=== PATIENT | male | born 1935 | race Caucasian/White ===

== ENCOUNTER 2016-10-21 05:06 | Inpatient (IN) | payer OTHER, MEDICARE ==
[~2016-10-21] VITALS: Ht 182.9 cm; Wt 103.4 kg
[~2016-10-21 05:06] MED LIST: COZ50 PO; PLE5 PO; ZOC20 PO; ZYL300 PO
[2016-10-21] MEDS ORDERED: ALLOPURINOL100 MG PO (07:19)
[2016-10-21] MEDS ORDERED: XARELTO10 M1 PO (07:19)
[2016-10-21] MEDS ORDERED: COZAAR100 MG PO (07:20)
[2016-10-21 07:24] LABS: BASOPHIL % 0.4 % (0-2); PLATELET COUNT 215 x10^3mcL (130-400)
[2016-10-21 07:25] LABS: RED CELL DISTRIBUTION WIDTH 14.7 % (11.5-14.5)
[2016-10-21 07:30] LABS: CALCIUM 8.8 mg/dL (8.5-10.1); CARBON DIOXIDE 27.2 mmol/L (21-32); CHLORIDE SERUM 106 mmol/L (98-107); CREATININE SERUM 1.1 mg/dL (0.7-1.3); GLUCOSE SERUM 123 mg/dL (74-106); SODIUM SERUM 140 mmol/L (136-145)
[2016-10-21 07:35] LABS: ALBUMIN 3.6 g/dL (3.4-5.0); ALKALINE PHOSPHATASE 78 U/L (46-116); ALT/SGPT 26 U/L (16-63); AST/SGOT 21 U/L (15-37); TOTAL PROTEIN, SERUM 7.5 g/dL (6.4-8.2)
[2016-10-21 09:41] LABS: T3 TOTAL 1.09 ng/mL
[2016-10-21 10:13] LABS: CHOLESTEROL/HDL RATIO 3.7; PHOSPHOROUS 3.4 mg/dL (2.5-4.9)
[2016-10-21 10:32] VITALS: BP 138/88
[2016-10-21 10:49] LABS: FREE T4 1.1 ng/dL (0.76-1.46)
[2016-10-21 11:27] VITALS: BP 135/80
[2016-10-21 11:47] LABS: FREE THYROXINE INDEX 0.6 ug/dL (1.4-4.5)
[2016-10-21 14:10] VITALS: BP 135/80
[2016-10-21 14:40] VITALS: BP 109/73
[2016-10-21 17:42] VITALS: BP 121/67
[2016-10-21 21:03] VITALS: BP 118/80
[2016-10-22 05:55] VITALS: BP 132/83
[2016-10-22 06:32] LABS: CALCIUM 8.4 mg/dL (8.5-10.1); CARBON DIOXIDE 27.3 mmol/L (21-32); CHLORIDE SERUM 107 mmol/L (98-107); CREATININE SERUM 1.1 mg/dL (0.7-1.3); GLUCOSE SERUM 103 mg/dL (74-106); MAGNESIUM 1.9 mg/dL (1.8-2.4); PHOSPHOROUS 3.1 mg/dL (2.5-4.9); POTASSIUM SERUM 4.2 mmol/L (3.5-5.1); SODIUM SERUM 143 mmol/L (136-145)
[2016-10-22 06:58] LABS: UA SPECIFIC GRAVITY >=1.030 (1.005-1.035); microscopic required? YES; urine erythrocyte NEGATIVE (NEGATIVE)
[2016-10-22 07:51] LABS: BASOPHIL % 0.3 % (0-2); PLATELET COUNT 192 x10^3mcL (130-400)
[2016-10-22 08:05] LABS: RED CELL DISTRIBUTION WIDTH 14.6 % (11.5-14.5)
[2016-10-22 09:54] VITALS: BP 131/85
[2016-10-22 21:54] VITALS: BP 145/82
[2016-10-23 06:03] VITALS: BP 111/75
[2016-10-23 07:39] LABS: BASOPHIL % 0.3 % (0-2); PLATELET COUNT 205 x10^3mcL (130-400)
[2016-10-23 07:42] LABS: RED CELL DISTRIBUTION WIDTH 14.6 % (11.5-14.5)
[2016-10-23 08:05] LABS: CALCIUM 8.4 mg/dL (8.5-10.1); CARBON DIOXIDE 25.7 mmol/L (21-32); CHLORIDE SERUM 105 mmol/L (98-107); GLUCOSE SERUM 105 mg/dL (74-106); MAGNESIUM 1.8 mg/dL (1.8-2.4); PHOSPHOROUS 3.5 mg/dL (2.5-4.9); POTASSIUM SERUM 3.9 mmol/L (3.5-5.1); SODIUM SERUM 140 mmol/L (136-145)
[2016-10-23 10:23] VITALS: BP 133/75
[2016-10-23 13:43] VITALS: BP 112/64
[2016-10-23 16:53] VITALS: BP 112/64
[2016-10-23] MEDS ORDERED: METP PO (16:55)
[2016-10-23] MEDS ORDERED: MIRUD PO (16:55)
== END 2016-10-23 18:37 | disposition home or self-care (01) | DRG 377 ==
LOC: ED 05:06 → DU 08:38 → MU 08:38 → DU 09:14 → MU 10-22 11:59
PROVIDERS: Emergency Medicine; Internal Medicine Gastroenterology; ADMIT Family Medicine
PROC: 0DBK8ZZ Excision of Ascending Colon, Via Natural or Artificial Opening Endoscopic (ICD-10-PCS; principal; 2016-10-22 14:00)
PROC: 0DBL8ZZ Excision of Transverse Colon, Via Natural or Artificial Opening Endoscopic (ICD-10-PCS; 2016-10-22 14:00)
DX: K57.31 Diverticulosis of large intestine without perforation or abscess with bleeding (principal); N17.0 Acute kidney failure with tubular necrosis; I42.0 Dilated cardiomyopathy; Q43.8 Other specified congenital malformations of intestine; D12.2 Benign neoplasm of ascending colon; D12.3 Benign neoplasm of transverse colon; R73.9 Hyperglycemia, unspecified; I10 Essential (primary) hypertension; J45.909 Unspecified asthma, uncomplicated; E02 Subclinical iodine-deficiency hypothyroidism; M10.9 Gout, unspecified; Z86.711 Personal history of pulmonary embolism; Z85.820 Personal history of malignant melanoma of skin; Z86.718 Personal history of other venous thrombosis and embolism
CPT/HCPCS: 45378; 83880; 84439; J1200; J1610; J2250; J2310; J3010; J3490; J7030; J7613; J7626; Q0092